=== PATIENT | male | born 1950 | race Caucasian/White ===

== ENCOUNTER 2023-10-04 09:40 | Outpatient (CLI) | payer MEDICARE, SELFPAY ==
--- NOTE | ~2023-10-04 | MM_ITS ---
EXAMINATION: MM diagnostic trevor BI w rama HISTORY: Bilateral breast pain and lumps TECHNIQUE: MLO and CC 3-D tomosynthesis images of both breasts were performed and synthetic 2-D image s were generated. CAD analysis was submitted and interpreted. COMPARISON: None BREAST PARENCHYMAL COMPOSITION: The breasts are heterogeneously dense, which may obscure small masses . FINDINGS: Moderate relatively symmetric bilateral gynecomastia is noted. No suspicious mass or nilson ectural distortion, malignant calcification, skin thickening or retraction is detected. IMPRESSION: 1. Bilateral gynecomastia; no mammographic evidence of malignancy 2. The referring physician has ordered bilateral complete breast ultrasound examination, which will b e reported separately. BI-RADS Category 0: Incomplete; bilateral complete ultrasound examination has been ordered by the ref erring physician Reviewed, dictated and finalized at location A. OPERATIONS MANAGER IMPRESSION: 1. Bilateral gynecomastia; no mammographic evidence of malignancy 2. The referring physician has ordered bilateral complete breast ultrasound exa mination, which will be reported separately. BI-RADS Category 0: Incomplete; bilateral complete ultrasound examination has b een ordered by the referring physician
--- NOTE | ~2023-10-04 | US_ITS ---
US breast BI limited DATE: 10/04/2023 11:32 INDICATION: Bilateral breast pain and lumps TECHNIQUE: Real-time and color flow imaging of both complete breasts including all 4 quadrants and vasquez bareolar areas COMPARISON: September 2023 bilateral diagnostic mammogram FINDINGS: Fibroglandular stroma is noted in the subareolar areas. No suspicious mass or shadowing of either breast is detected. No suspicious vascularity is noted. IMPRESSION: BI-RADS Category 2: Benign; bilateral gynecomastia Reviewed, dictated and finalized at Location [facility]. Reviewed, dictated and finalized at location A. [employer]
== END 2023-10-04 09:41 | disposition home or self-care (01) ==
LOC: CHSIMG 09:47
PROVIDERS: PCP Family Medicine; Visit Provider Family Medicine
DX: N64.4 Mastodynia (principal); R92.8 Other abnormal and inconclusive findings on diagnostic imaging of breast
CPT/HCPCS: 76642; 77062; 77066; G0279